=== PATIENT | male | born 1985 | race Caucasian/White ===

== ENCOUNTER 2018-12-19 19:06 | Emergency (ER) | payer SELFPAY ==
[2018-12-19 19:53] VITALS: BP 148/99
[2018-12-19] MEDS ORDERED: TYLENOL PO ONE (20:04)
--- NOTE | 2018-12-19 20:04 | Emergency Department Report ---
Blank Doc - Documentation Documentation: This is a 33-year-old male that presents with rectal pain. Patient stated that due to the pain is unable to have a bowel movement. Stated has swelling in his rectal area. This initial assessment diagnostic orders/clinical plan/treatment(s) is/are subject to change based on patient's health status, clinical progression and re- assessment by fellow clinical providers in the ED. Further treatment and workup at subsequent clinical providers discretion. Patient/guardians urged not to elope from ED s their condition may be serious if not clinically assessed and managed. Initial orders include: 1-Patient sent to [facility] for further evaluation and treatment 2- labs 3- Xr abd
[2018-12-19] MEDS ORDERED: TYLENOL ONE (20:07)
[2018-12-21] MEDS ORDERED: APRESOLINE ONE (14:41)
== END 2018-12-19 23:30 | disposition left against medical advice (07) ==
LOC: ED 19:06
DX: K62.89 Other specified diseases of anus and rectum (principal); Z88.0 Allergy status to penicillin
CPT/HCPCS: 99282

== ENCOUNTER 2018-12-20 14:13 | Inpatient (IN) | payer SELFPAY ==
[2018-12-20] MEDS ORDERED: IBUPROFEN PO ONE (14:27)
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
[2018-12-20] MEDS ORDERED: XYLOCAINE 1% 20 mL INFILTRATI ONE (14:28)
[2018-12-20] MEDS ORDERED: TYLENOL PO ONE (14:29)
[2018-12-20] MEDS ORDERED: TYLENOL ONE (14:31)
[2018-12-20] MEDS ORDERED: ZOFRAN IV ONE (15:31)
[2018-12-20] MEDS ORDERED: NACL 0.9% 1000 ML 1,000 ML IV ONE (15:31)
[2018-12-20] MEDS ORDERED: MORPHINE IV ONE (15:31)
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
[2018-12-20 16:21] LABS: Hematocrit 41.1 % (35.5-45.6); Hemoglobin 13.7 gm/dl (11.8-15.2); Mean Corpuscular HGB Conc 33 % (32-34); Mean Corpuscular Volume 98 fl (84-94); Platelet Count 291 K/mm3 (140-440); Red Blood Count 4.19 M/mm3 (3.65-5.03); Red Cell Distribution Width 12.9 % (13.2-15.2)
[2018-12-20 16:43] LABS: BUN/Creatinine Ratio 10; Blood Urea Nitrogen 12 mg/dL (9-20); Calcium 8.9 mg/dL (8.4-10.2); Hemolysis Index 8
[2018-12-20] MEDS ORDERED: K-DUR PO ONE (17:31)
--- NOTE | 2018-12-20 18:24 | Cat Scan Report ---
FINAL REPORT EXAM: CT PELVIS W CON HISTORY: pelvic perirectal pain TECHNIQUE: CT pelvis with intravenous contrast PRIORS: None. FINDINGS: Superior posterior to the rectum there is a collection measuring 3.7 x 3.7 x 3.8 centimeters with thi ck enhancing crowell most consistent in appearance with perirectal abscess. No soft tissue gas apprecia manny. Visualized portions of the colon and small bowel are unremarkable. No intraperitoneal abnormalit y identified. Urinary bladder is unremarkable. IMPRESSION: 3.8 centimeter thick walled the low-density collection superior posterior to the rectum most consiste nt with perirectal abscess
[2018-12-20] MEDS ORDERED: CLEOCIN 600 MG/50 mL 600 MG/50 ML BAG IV ONE (18:38)
[2018-12-20] MEDS ORDERED: SUBLIMAZE IV ONE (18:44)
--- NOTE | 2018-12-20 18:50 | History and Physical Report ---
History of Present Illness Chief complaint: It hurts, especially when I go to the restroom History of present illness: 33 YO Male with Nicotine Dependence presents to ED for evaluation. Pt states that he has experienced rectal pain over the past 1 week, with worsening symptoms over the past 4 days. Pt states that pain is 8-10/10, aching, constant, increased with movement, worsened with defecation. Pt denies fever, chills, BRBPR, skin rash, NVD, Trauma, unintentional weight loss, night sweats, or recent ill contacts. Pt transported to [facility] for further care and evaluation. Pt seen and evaluated in ED and found to have Vandana-rectal Abscess as well as SIRS. Pt admitted to medical floor. Surgery team consulted in ED. Past History Past Medical History: other (Nicotine Dependence) Past Surgical History: No surgical history, Other (reviewed) Social history: , smoking Family history: no significant family history (reviewed) Medications and Allergies Allergies Allergy/AdvReac Type Severity Reaction Status Date / Time Penicillins Allergy Hives Verified 12/19/18 19:16 Active Meds: Active Medications Clindamycin HCl (Cleocin 600 Mg/50 Ml) 600 mg in 50 mls @ 100 mls/hr IV ONCE ONE Stop: 12/20/18 19:07 Review of Systems Constitutional: no weight loss, no weight gain, no fever, no chills Ears, nose, mouth and throat: no ear pain, no ear discharge, no tinnitis, no decreased hearing, no nose pain, no nasal congestion Cardiovascular: no chest pain, no orthopnea, no palpitations, no rapid/irregular heart beat, no edema Respiratory: no cough, no cough with sputum Gastrointestinal: no nausea, no vomiting, no change in bowel habits Genitourinary Male: no dysuria, no hematuria, no flank pain, no discharge Rectal: pain, no incontinence, no bleeding, no discharge, no flatulence Musculoskeletal: no neck pain, no shooting arm pain, no arm numbness/tingling, no low back pain, no shooting leg pain Integumentary: no rash, no pruritis, no redness, no sores, no wounds Neurological: no transient paralysis, no paralysis, no weakness, no parathesias, no numbness, no seizures Psychiatric: no anxiety, no memory loss, no change in sleep habits, no sleep disturbances, no insomnia, no hypersomnia Endocrine: no cold intolerance, no heat intolerance, no polyphagia, no excessive thirst, no polydipsia, no polyuria, no nocturia Hematologic/Lymphatic: no easy bruising, no easy bleeding, no lymphadenopathy, no lymphedema Allergic/Immunologic: no urticaria, no allergic rhinitis, no persistent infections Exam - Constitutional Vitals: Temp Pulse Resp BP Pulse Ox 98.2 F 70 19 150/92 100 12/20/18 17:33 12/20/18 17:33 12/20/18 17:33 12/20/18 17:33 12/20/18 17:33 General appearance: Present: mild distress - EENT Eyes: Present: PERRL ENT: hearing intact, clear oral mucosa - Neck Neck: Present: supple, normal ROM - Respiratory Respiratory effort: normal Respiratory: bilateral: CTA - Cardiovascular Heart Sounds: Present: S1 & S2. Absent: rub, click - Extremities Extremities: pulses symmetrical, No edema Peripheral Pulses: within normal limits - Abdominal General gastrointestinal: Present: soft, non-tender, non-distended, normal bowel sounds Male genitourinary: Present: normal - Integumentary Integumentary: Present: clear, warm, dry - Musculoskeletal Musculoskeletal: gait normal, strength equal bilaterally - Psychiatric Psychiatric: appropriate mood/affect, intact judgment & insight - Neurologic Neurologic: CNII-XII intact, moves all extremities Results - Labs CBC & Chem 7: 12/20/18 15:52 12/20/18 15:52 Labs: Abnormal lab results 12/20/18 12/20/18 Range/Units 15:52 15:52 WBC 13.7 H (4.5-11.0) K/mm3 MCV 98 H (84-94) fl MCH 33 H (28-32) pg RDW 12.9 L (13.2-15.2) % Potassium 3.2 L (3.6-5.0) mmol/L Chloride 97.8 L (98-107) mmol/L Assessment and Plan - Patient Problems (1) Perirectal abscess Current Visit: Yes Status: Acute Plan to address problem: IV antibiotic therapy, CT Abdomen/Pelvis, bmp, serial cbc, Surgery Team consulted in ED. (2) SIRS (systemic inflammatory response syndrome) Current Visit: Yes Status: Acute Plan to address problem: IV antibiotic therapy, cbc, cmp, supportive care. (3) Nicotine dependence Current Visit: Yes Status: Acute Qualifiers: Nicotine product type: cigarettes Plan to address problem: supportive care, smoking cessation counseling. (4) DVT prophylaxis Current Visit: Yes Status: Acute Plan to address problem: SCD to BLE while in bed.
[2018-12-20] MEDS ORDERED: PROVENTIL IH PRN (18:57)
[2018-12-20] MEDS ORDERED: PERCOCET 5/325 PO PRN (18:57)
[2018-12-20] MEDS ORDERED: SODIUM CHLORIDE FLUSH SYRINGE 10 ML IV PRN (18:57)
[2018-12-20] MEDS ORDERED: ZOFRAN IV PRN (18:57)
[2018-12-20] MEDS: PEPCID IV SCH (21:48)
[2018-12-20] MEDS: SODIUM CHLORIDE FLUSH SYRINGE 10 ML IV SCH (21:49)
[2018-12-20] MEDS: MORPHINE IV PRN (21:49)
[2018-12-21] MEDS: TYLENOL PO PRN ×3 (00:14→10:03)
[2018-12-21] MEDS: MORPHINE IV PRN ×2 (01:47→05:40)
[2018-12-21 06:55] LABS: Basophils # (Auto) 0.1 K/mm3 (0.0-0.1); Basophils % (Auto) 0.6 % (0.0-1.8); Eosinophils # (Auto) 0.2 K/mm3 (0.0-0.4); Eosinophils % (Auto) 1.3 % (0.0-4.3); Hematocrit 42.8 % (35.5-45.6); Hemoglobin 14.4 gm/dl (11.8-15.2); Lymphocytes # (Auto) 2.9 K/mm3 (1.2-5.4); Lymphocytes % (Auto) 21.3 % (13.4-35.0); Mean Corpuscular HGB Conc 34 % (32-34); Mean Corpuscular Volume 98 fl (84-94); Monocytes # (Auto) 1.8 K/mm3 (0.0-0.8); Monocytes % (Auto) 12.7 % (0.0-7.3); Platelet Count 295 K/mm3 (140-440); Red Blood Count 4.38 M/mm3 (3.65-5.03); Red Cell Distribution Width 12.6 % (13.2-15.2)
[2018-12-21 07:07] LABS: BUN/Creatinine Ratio 8; Blood Urea Nitrogen 9 mg/dL (9-20); Calcium 8.9 mg/dL (8.4-10.2); Hemolysis Index 5
[2018-12-21] MEDS: PEPCID IV SCH (10:03)
[2018-12-21] MEDS: SODIUM CHLORIDE FLUSH SYRINGE 10 ML IV SCH (10:05)
--- NOTE | 2018-12-21 11:56 | Anesthesia Day of Surgery ---
Anesthesia Day of Surgery - Day of Surgery Patient Examined: Yes Patient H&P Reviewed: Yes Patient is NPO: Yes (per patient, last had clear liquids/ice chips at 10am) Beta Blockers: No [place] Test: N/A
[2018-12-21] MEDS ORDERED: LACTATED RINGERS 1,000 ML ONE (11:59)
[2018-12-21] MEDS ORDERED: CLEOCIN 300 MG/50 mL 300 MG/50 ML BAG IV SCH (12:00)
[2018-12-21] MEDS ORDERED: SUBLIMAZE ONE (12:01)
[2018-12-21] MEDS ORDERED: VERSED ONE ×2 (12:01→13:45)
[2018-12-21] MEDS ORDERED: DIPRIVAN 10 MG/ML IV ONE (12:02)
--- NOTE | 2018-12-21 12:15 | Consultation ---
History of Present Illness Consult date: 12/21/18 Chief complaint: rectal pain - History of present illness History of present illness: 33 yo M with no PMHx presents to ER with c/o 1 week of swelling and pain in the rectal area. He though it was a hemorrhoid but the pain did not improve. Pain is pressurelike and does not radiate. He has never had anything like this in the past. He is a lunch truck driver. He denies drainage from the area. He did have 2 BMs last night that he felt was mixed with mucous or purulent discharge. No f/c, cp, sob, n/v, abd pain. He was kept NPO overnight but despite this he drank water this am at 11am. Past History Past Medical History: No medical history, other (Nicotine Dependence) Past Surgical History: Other (wisdom teeth extraction) Social history: , smoking. denies: prescription drug abuse, IV drug use Family history: no significant family history (reviewed) Medications and Allergies Allergies Allergy/AdvReac Type Severity Reaction Status Date / Time Penicillins Allergy Hives Verified 12/19/18 19:16 Home Medications Medication Instructions Recorded Confirmed Last Taken Type No Known Home Medications [No 12/21/18 12/21/18 Unknown History Reported Home Medications] Active Meds: Active Medications Acetaminophen (Tylenol) 650 mg PO Q4H PRN PRN Reason: Pain MILD(1-3)/Fever >100.5/PENA Last Admin: 12/21/18 10:03 Dose: 650 mg Documented by: Albuterol (Proventil) 2.5 mg IH Q4HRT PRN PRN Reason: Shortness Of Breath Famotidine (Pepcid) 20 mg IV BID NIMO Last Admin: 12/21/18 10:03 Dose: 20 mg Documented by: Clindamycin HCl (Cleocin 300 Mg/50 Ml) 300 mg in 50 mls @ 100 mls/hr IV Q6HR NIMO; Protocol Morphine Sulfate (Morphine) 2 mg IV Q4H PRN PRN Reason: Pain, Moderate (4-6) Last Admin: 12/21/18 05:40 Dose: 2 mg Documented by: Ondansetron HCl (Zofran) 4 mg IV Q8H PRN PRN Reason: Nausea And Vomiting Last Admin: 12/20/18 21:48 Dose: 4 mg Documented by: Oxycodone/Acetaminophen (Percocet 5/325) 1 tab PO Q6H PRN PRN Reason: Pain, Moderate (4-6) Last Admin: 12/20/18 23:57 Dose: 1 tab Documented by: Sodium Chloride (Sodium Chloride Flush Syringe 10 Ml) 10 ml IV BID NIMO Last Admin: 12/21/18 10:05 Dose: 10 ml Documented by: Sodium Chloride (Sodium Chloride Flush Syringe 10 Ml) 10 ml IV PRN PRN PRN Reason: LINE FLUSH Review of Systems All systems: negative (10 pt ROS performed and negative except for that listed in HPI) Exam Vital Signs Temp Pulse Resp BP Pulse Ox 97.7 F 88 18 167/88 100 12/20/18 14:25 12/20/18 14:25 12/20/18 14:25 12/20/18 14:25 12/20/18 14:25 Narrative exam: Gen: AAOx3. NAD ENT: NO scleral icterus or conjunctival pallor CV: s1, S2+ Resp: even and unlabored Abd: soft Ext: no c/c/e Rectal: Fluctuant, tender, and indurated area located near the coccyx. No drainage. Results - Labs 12/21/18 05:55 12/21/18 05:55 Abnormal lab results 12/20/18 12/20/18 12/21/18 Range/Units 15:52 15:52 05:55 WBC 13.7 H 13.7 H (4.5-11.0) K/mm3 MCV 98 H 98 H (84-94) fl MCH 33 H 33 H (28-32) pg RDW 12.9 L 12.6 L (13.2-15.2) % White % (Auto) 12.7 H (0.0-7.3) % White # 1.8 H (0.0-0.8) K/mm3 Seg Neutrophils # 8.8 H (1.8-7.7) K/mm3 Potassium 3.2 L (3.6-5.0) mmol/L Chloride 97.8 L (98-107) mmol/L Diabetes panel 12/20/18 12/21/18 Range/Units 15:52 05:55 Sodium 139 141 (137-145) mmol/L Potassium 3.2 L 3.7 (3.6-5.0) mmol/L Chloride 97.8 L 102.4 (98-107) mmol/L Carbon Dioxide 25 26 (22-30) mmol/L BUN 12 9 (9-20) mg/dL Creatinine 1.2 1.1 (0.8-1.5) mg/dL Glucose 95 90 (75-100) mg/dL Calcium 8.9 8.9 (8.4-10.2) mg/dL Calcium panel 12/20/18 12/21/18 Range/Units 15:52 05:55 Calcium 8.9 8.9 (8.4-10.2) mg/dL Pituitary panel 12/20/18 12/21/18 Range/Units 15:52 05:55 Sodium 139 141 (137-145) mmol/L Potassium 3.2 L 3.7 (3.6-5.0) mmol/L Chloride 97.8 L 102.4 (98-107) mmol/L Carbon Dioxide 25 26 (22-30) mmol/L BUN 12 9 (9-20) mg/dL Creatinine 1.2 1.1 (0.8-1.5) mg/dL Glucose 95 90 (75-100) mg/dL Calcium 8.9 8.9 (8.4-10.2) mg/dL Adrenal panel 12/20/18 12/21/18 Range/Units 15:52 05:55 Sodium 139 141 (137-145) mmol/L Potassium 3.2 L 3.7 (3.6-5.0) mmol/L Chloride 97.8 L 102.4 (98-107) mmol/L Carbon Dioxide 25 26 (22-30) mmol/L BUN 12 9 (9-20) mg/dL Creatinine 1.2 1.1 (0.8-1.5) mg/dL Glucose 95 90 (75-100) mg/dL Calcium 8.9 8.9 (8.4-10.2) mg/dL - Imaging CT scan - pelvis: report reviewed, image reviewed Assessment and Plan 33 yo M with perirectal abscess Plan: 1. NPO 2. IVF 3. IV abx 4. prn pain control 5. OR today for rectal exam under anesthesia and drainage of abscess. All risks, benefits, alternatives to procedure explained to patient and questions answered. Consent obtained 6. Pt may be discharged after procedure on PO levaquin and flagyl x 7 days. I will follow up on cultures and will see patient in the office as outpatient for wound check. I explained this to the patient and verbal instructions for wound care given. Printed instructions will be left on the chart D/W Dr. Faust Thank you, please call with questions.
[2018-12-21] MEDS ORDERED: PROVENTIL IH ONE (12:23)
[2018-12-21] MEDS ORDERED: SUBLIMAZE IV PRN (12:24)
[2018-12-21] MEDS ORDERED: TORADOL IV PRN (12:24)
[2018-12-21] MEDS ORDERED: PROVENTIL IH NR (12:30)
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
[2018-12-21] MEDS ORDERED: MARCAINE 0.5% INFILTRATI ONE ×2 (12:57→13:19)
[2018-12-21] MEDS ORDERED: NACL 0.9% IR ONE (12:57)
[2018-12-21] MEDS ORDERED: NEURONTIN PO NR (13:00)
[2018-12-21] MEDS ORDERED: DILAUDID ONE ×3 (13:24→14:35)
--- NOTE | 2018-12-21 13:38 | Post Operative Note ---
Date of procedure: 12/21/18 Pre-op diagnosis: perirectal abscess Post-op diagnosis: same Findings: 4cm x4cm perirectal abscess with copious amount of thick purulent drainage. No rectal fistula Procedure: rectal exam under anesthesia, incision and drainage of perirectal abscess Anesthesia: CHENA, local Surgeon: GRIFFIN CARDENAS Estimated blood loss: minimal Pathology: list (cultures) Specimen disposition: to lab Condition: stable Disposition: PACU
[2018-12-21] MEDS: DILAUDID IV PRN ×2 (14:20→14:35)
[2018-12-21] MEDS ORDERED: APRESOLINE ONE (14:41)
--- NOTE | 2018-12-21 14:49 | Discharge Summary ---
Providers - Providers Date of Admission: 12/20/18 18:57 Attending physician: USMAN KRAMER MD 12/20/18 18:38 Consult to Physician [CONS] Urgent Comment: Consulting Provider: GRIFFIN CARDENSA Physician Instructions: Reason For Exam: per rectal abscess [facility] Reason for admission: Rectal Abscess Condition: Good Hospital course: 33 YO Male with Nicotine Dependence presents to ED for evaluation. Pt states that he has experienced rectal pain over the past 1 week, with worsening symptoms over the past 4 days. Pt states that pain is 8-10/10, aching, constant, increased with movement, worsened with defecation. Pt denies fever, chills, BRBPR, skin rash, NVD, Trauma, unintentional weight loss, night sweats, or recent ill contacts. Pt transported to [facility] for further care and evaluation. Pt seen and evaluated in ED and found to have Vandana-rectal Abscess as well as SIRS. Pt admitted to medical floor. Surgery team consulted in ED. Patient proceeded to have I/D and is doing well post procedure 4cm x4cm perirectal abscess with copious amount of thick purulent drainage. No rectal fistula (1) Perirectal abscess (2) SIRS (systemic inflammatory response syndrome) (3) Nicotine dependence Disposition: DC-01 TO HOME OR SELFCARE Time spent for discharge: 35 mins Core Measure Documentation - Palliative Care Palliative Care/ Comfort Measures: Not Applicable - Core Measures Any of the following diagnoses?: none Exam - Physical Exam Narrative exam: VITAL SIGNS: Reviewed. GENERAL: The patient appeared well nourished and normally developed. Vital signs as documented. HEAD: No signs of head trauma. EYES: Pupils are equal. Extraocular motions intact. EARS: Hearing grossly intact. MOUTH: Oropharynx is normal. NECK: No adenopathy, no JVD. CHEST: Chest with clear breath sounds bilaterally. No wheezes, rales, or rhonchi. CARDIAC: Regular rate and rhythm. S1 and S2, without murmurs, gallops, or rubs. VASCULAR: No Edema. Peripheral pulses normal and equal in all extremities. ABDOMEN: Soft, without detectable tenderness. No sign of distention. No rebound or guarding, and no masses palpated. Bowel Sounds normal. MUSCULOSKELETAL: Good range of motion of all major joints. Extremities without clubbing, cyanosis or edema. Rectal : dressing in place, No overt drainage NEUROLOGIC EXAM: Alert and oriented x 3. No focal sensory or strength deficits. Speech normal. Follows commands. PSYCHIATRIC: Mood normal. SKIN: No rash or lesions. - Constitutional Vitals: Temp Pulse Resp BP Pulse Ox 99.5 F 75 15 170/112 100 12/21/18 13:46 12/21/18 14:40 12/21/18 14:35 12/21/18 14:40 12/21/18 14:15 Plan Activity: advance as tolerated, fall precautions Diet: low fat Special Instructions: record daily weights, record daily BP diary Follow up with: GRIFFIN CARDENAS DO [Staff Physician] - 7 Days CHICAGO CRUZ BURNS MD [Primary Care Provider] - 3-5 Days Prescriptions: levoFLOXacin [Levaquin] 750 mg PO QDAY #7 tablet metroNIDAZOLE [Flagyl] 500 mg PO Q8HR #21 tablet oxyCODONE /ACETAMINOPHEN [Percocet 5/325 mg] 1 tab PO Q6H PRN #14 tablet PRN Reason: Pain, Moderate (4-6)
[2018-12-21] MEDS ORDERED: APRESOLINE IV ONE (15:26)
[2018-12-21 15:54] VITALS: BP 164/101
[2018-12-21] MEDS ORDERED: NACL 0.9% 1000 ML 1,000 ML IV ONE (16:00)
--- NOTE | 2018-12-31 14:42 | Operative Report ---
Operative Report Operative Report: SEE DICTATED REPORT dictation no: [id number]
--- NOTE | 2019-01-01 15:55 | Operative Report ---
PREOPERATIVE DIAGNOSIS: Perirectal abscess. POSTOPERATIVE DIAGNOSIS: Perirectal abscess. FINDINGS: 4 x 4 cm perirectal abscess with copious amount of thick purulent drainage, no rectal fistula. PROCEDURE: Rectal exam under anesthesia, incision and drainage of perirectal abscess. ANESTHESIA: General endotracheal anesthesia, local. SURGEON: Elizabeth Oropeza DO ESTIMATED BLOOD LOSS: Minimal. PATHOLOGY: Cultures. SPECIMEN DISPOSITION: To lab. CONDITION: Stable. DISPOSITION: The patient to PACU. HISTORY OF PRESENT ILLNESS AND INDICATION: The patient is a 33-year-old male who presented to the Emergency Room with complaints of rectal pain x [address] scan of the pelvis was performed, which showed rectal abscess. After discussion with the patient, an incision and drainage with rectal exam under anesthesia was recommended. I discussed all risks, benefits and alternatives of the procedure and all questions were answered. The patient consented. PROCEDURE IN DETAIL: The patient was brought to the operating room and anesthesia was induced on the stretcher. The patient was then placed in prone position and all bony prominences padded appropriately. The patient was placed in jacknife position and gluteals taped apart. The rectum and perirectal area was prepped and draped in the usual sterile fashion. Timeout was performed. Local anesthetic was infiltrated into the skin and subcutaneous tissue overlying the area of induration and fluctuance. This was located at the 6 o'clock position in relationship to the rectum. Using an 11 blade, an incision was made over the area of fluctuance. There was return of copious amount of purulent material. Wound cultures were obtained, the wound was probed with a gloved finger and all loculations broken up bluntly. Once all of the purulent material was expressed, the wound was checked for hemostasis and irrigated with a copious amount of saline. A rectal exam was performed, which showed a normal rectal tone without any palpable masses or gross blood. There was no connection between the abscess and the rectum. The wound is once again checked for hemostasis, which was carefully achieved using pressure. The wound was then packed with 1 piece of iodoform and covered with ABD pads and secured with mesh underwear. At the end of the case, all sponge, instrument, sharp counts were correct x 2. The patient was transferred to the bed in supine position and extubated. He was taken to PACU in stable condition. [facility]# [id number] ED/RIA PARRA
== END 2018-12-21 19:33 | disposition home or self-care (01) | DRG 345 ==
LOC: ED 14:13 → 3A 18:57 → 3B-SURG 12-21 15:22
PROVIDERS: ADMIT Internal Medicine; ATTEND Internal Medicine
PROC: 0D9P0ZZ Drainage of Rectum, Open Approach (ICD-10-PCS; principal; 2018-12-21)
DX: K61.1 Rectal abscess (principal); R65.10 Systemic inflammatory response syndrome (SIRS) of non-infectious origin without acute organ dysfunction; F17.210 Nicotine dependence, cigarettes, uncomplicated; Z72.89 Other problems related to lifestyle; Z88.0 Allergy status to penicillin; Z71.6 Tobacco abuse counseling
CPT/HCPCS: 36415; 72193; 80048; 82550; 85025; 85027; 87075; 87076; 87116; 87186; G0378; J0360; J1170; J2250; J2270; J2405; J2704; J3010; J7030; J7120; Q9967